=== PATIENT | male | born 1985 | race Caucasian/White ===

== ENCOUNTER 2017-12-21 15:41 | Emergency (ER) | payer OTHER ==
[~2017-12-21] VITALS: Ht 172.7 cm; Wt 72.0 kg
[2017-12-21 15:52] VITALS: TEMP 37.2; Ht 172.7 cm; Wt 72.0 kg
[2017-12-21 17:00] LABS: BASO % 0.6 %; BASO ABS # 0.07 K/uL (0-0.2); EOS % 0.3 %; EOS ABS # 0.04 K/uL (0-0.5); HEMATOCRIT 41.4 % (42-52); IG# 0.02 K/uL (0.00-0.02); LYMPH % 11.7 %; LYMPH ABS # 1.36 K/uL (1.2-3.4); MEAN CORPUSCULAR HGB CONC 36.2 g/dl (32-36); MEAN PLATELET VOLUME 10.2 fL (7.4-10.4); MONO % 6.2 %; MONO ABS # 0.72 K/uL (0.11-0.59); NEUT ABS # 9.46 K/uL (1.4-6.5); PLATELET COUNT 282 K/uL (130-400); RED CELL DISTRIBUTION WIDTH CV 12.1 % (11.5-14.5); RED CELL DISTRIBUTION WIDTH SD 40.3 fL (36.4-46.3); WHITE BLOOD COUNT 11.67 K/uL (4.8-10.8)
[2017-12-21 17:34] LABS: CALCIUM 9.1 mg/dl (8.5-10.1); CREATININE 0.88 mg/dl (0.60-1.40); POTASSIUM 3.7 mmol/L (3.5-5.1)
[2017-12-21] MEDS ORDERED: TRAZ100T29 PO (17:42)
[2017-12-21] MEDS ORDERED: FLUO20CA20 PO (17:42)
[2017-12-21 17:44] VITALS: BP 134/76; PULSE 82; O2SAT 99
[2017-12-21] MEDS ORDERED: SULFAMETHOXAZOLE/TRIMETHOPRIM DS 800/160MG TAB PO STA (18:08)
[2017-12-21] MEDS ORDERED: SULF800T23 PO (18:09)
--- NOTE | 2017-12-21 23:22 | EMERGENCY ROOM VISIT NOTE ---
History Report prepared by Ariela: Yaritza Reilly Under the Supervision of: Dr. Ronald Tolentino M.D. First contact with patient: 16:04 Chief Complaint: UNABLE TO VOID Stated Complaint: UNABLE TO URINATE Nursing Triage Summary: pt states " i can't urinate" last time he voided was 12 today, states he had this before but can't remember what it was but he needs surgery per c/o dysuria prior to noon today no kidney stones History of Present Illness The patient is a 32 year old male who presents to the Emergency Room with complaints of persistent inability to urinate since 1200 today. He states the last time he was able to urinate was at 1200 today. He reports a slight burning sensation with urination. He feels as though his bladder is full, though he denies any abdominal pain. He states that he is unable to void. He states the nursing staff at the shelter attempted to put a Menendez catheter in place though they were unsuccessful. He states that he has had similar symptoms about five months ago. He is not sure what caused this. He denies any nausea, fever, or back pain. The patient has a history of schizoaffective disorder and antisocial personality disorder. Source of History: patient Onset: 1200 today Position: other (Bladder) Symptom Intensity: severe Quality: other (Inability urinate) Timing: other (persistent) Associated Symptoms: + urinary symptoms (burning sensation with urination, unable to void), No fevers, No nausea, No abdominal pain, No back pain Review of Systems See HPI for pertinent positives & negatives. A total of 10 systems reviewed and were otherwise negative. Past Medical & Surgical Medical Problems: (1) Antisocial personality disorder (2) H/O urinary tract problem (3) Schizoaffective disorder Family History No pertinent family history Social History Smoking Status: Current Every Day Smoker Alcohol Use: none [facility] Status: [facility] Occupation Status: unemployed, other Current/Historical Medications Scheduled Fluoxetine Hcl (Pmdd) (Fluoxetine), 20 MG PO HS Sulfa/Trimethoprim (Bactrim Ds 800MG/160MG), 1 TAB PO BID Trazodone Hcl (Trazodone), 100 MG PO HS Allergies Coded Allergies: Animal Dander (Unverified Allergy, Mild, Itch, 12/21/17) Physical Exam Vital Signs Date Time Temp Pulse Resp B/P (MAP) Pulse Ox O2 Delivery O2 Flow Rate FiO2 12/21/17 17:44 82 18 134/76 99 Room Air 12/21/17 15:52 37.2 94 18 140/103 99 Room Air Physical Exam Constitutional: Vital signs reviewed. Eyes: Pupils are equal round reactive to light. Conjunctiva are noninjected. ENT: Pharynx is clear without erythema or exudate. Mucous membranes are moist. Neck supple without meningeal signs. Respiratory: Clear to auscultation bilaterally. Breath sounds are equal bilaterally. Cardiovascular: Regular rate and rhythm. No rubs or gallops. GI: Soft, nondistended and nontender. Bowel sounds are present. Musculoskeletal: No peripheral edema. No CVA tenderness. Integumentary: No cyanosis. Neurological: The patient is awake and alert. No focal deficits. Psychiatric: Normal affect. Medical Decision & Procedures Laboratory Results 12/21/17 16:46 Red Blood Count 4.55, Mean Corpuscular Volume 91.0, Mean Corpuscular Hemoglobin 33.0, Mean Corpuscular Hemoglobin Concent 36.2, Mean Platelet Volume 10.2, Neutrophils (%) (Auto) 81.0, Lymphocytes (%) (Auto) 11.7, Monocytes (%) (Auto) 6.2, Eosinophils (%) (Auto) 0.3, Basophils (%) (Auto) 0.6, Neutrophils # (Auto) 9.46, Lymphocytes # (Auto) 1.36, Monocytes # (Auto) 0.72, Eosinophils # (Auto) 0.04, Basophils # (Auto) 0.07 12/21/17 16:46 Test 12/21/17 16:30 12/21/17 16:46 Urine Color YELLOW Urine Appearance CLEAR (CLEAR) Urine pH 7.5 (4.5-7.5) Urine Specific [place] 1.009 (1.000-1.030) Urine Protein NEG (NEG) Urine Glucose (UA) NEG (NEG) Urine Ketones NEG (NEG) Urine Occult Blood NEG (NEG) Urine Nitrite POS (NEG) Urine Bilirubin NEG (NEG) Urine Urobilinogen NEG (NEG) Urine Leukocyte Esterase MODERATE (NEG) Urine WBC (Auto) 10-30 /hpf (0-5) Urine RBC (Auto) 0-4 /hpf (0-4) Urine Hyaline Casts (Auto) 1-5 /lpf (0-5) Urine Epithelial Cells (Auto) 0-5 /lpf (0-5) Urine Bacteria (Auto) 1+ (NEG) White Blood Count 11.67 K/uL (4.8-10.8) Red Blood Count 4.55 M/uL (4.7-6.1) Hemoglobin 15.0 g/dL (14.0-18.0) Hematocrit 41.4 % (42-52) Mean Corpuscular Volume 91.0 fL (80-100) Mean Corpuscular Hemoglobin 33.0 pg (25-34) Mean Corpuscular Hemoglobin Concent 36.2 g/dl (32-36) Platelet Count 282 K/uL (130-400) Mean Platelet Volume 10.2 fL (7.4-10.4) Neutrophils (%) (Auto) 81.0 % Lymphocytes (%) (Auto) 11.7 % Monocytes (%) (Auto) 6.2 % Eosinophils (%) (Auto) 0.3 % Basophils (%) (Auto) 0.6 % Neutrophils # (Auto) 9.46 K/uL (1.4-6.5) Lymphocytes # (Auto) 1.36 K/uL (1.2-3.4) Monocytes # (Auto) 0.72 K/uL (0.11-0.59) Eosinophils # (Auto) 0.04 K/uL (0-0.5) Basophils # (Auto) 0.07 K/uL (0-0.2) RDW Standard Deviation 40.3 fL (36.4-46.3) RDW Coefficient of Variation 12.1 % (11.5-14.5) Immature Granulocyte % (Auto) 0.2 % Immature Granulocyte # (Auto) 0.02 K/uL (0.00-0.02) Anion Gap 8.0 mmol/L (3-11) Est Creatinine Clear Calc Drug Dose 118.7 ml/min Estimated GFR () 133.6 Estimated GFR (Non- 115.3 BUN/Creatinine Ratio 10.6 (10-20) Calcium Level 9.1 mg/dl (8.5-10.1) Chemistry Specimen Hemolysis Laboratory results as reviewed by me. Medications Administered Medications (Trade) Dose Ordered Sig/Ariana Route Start Time Stop Time Status Last Admin Dose Admin Trimethoprim/ Sulfamethoxazole (Septra Ds 800/ 160MG Tab) 1 tab NOW STAT PO 12/21/17 18:08 12/21/17 18:09 DC 12/21/17 18:08 1 TAB ED Course 1604: The patient was evaluated in room B11B. A complete history and physical exam was performed. 164: I spoke with Glenn Harrison. She states the patient drained 1000 ml of urine via Menendez catheter. 180: Ordered Septra 1 tab PO 1811: I reassessed the patient at this time. He is feeling better and resting comfortably. I discussed the results and treatment plan with the patient. I answered all pertaining questions that he had. He expressed understanding and verbalized agreement. The patient will be discharged back to [facility]. Medical Decision This is a 32-year-old male who presents with inability urinate. Differential diagnosis includes urinary retention, obstructive uropathy, BPH, renal failure, oliguria, UTI. I did perform a limited focused review of portions of the patient's old chart on the electronic medical record. The patient has had no prior visits to this hospital. I did evaluate the patient as noted above. The patient is presenting with urinary retention. He has had similar problems in the past. His last episode was approximately 5 months ago. He is not sure what the cause of his urinary retention is. IV access was established. A bladder scan was performed. A Menendez catheter was placed. He drained about a liter of yellow urine. I did order and personally review the patient's urine analysis as described above. He does have evidence of infection. I did order and review the patient's blood work as noted in the electronic medical record. Renal function is unremarkable. I did discuss the test results with the patient. He is feeling much better. He was discharged with his Menendez catheter and placed in a leg bag. He will follow-up with the shelter doctor and I did recommend urology referral. He was discharged with a prescription for Bactrim and given his first dose here. Medication Reconcilliation Current Medication List: was personally reviewed by me Blood Pressure Screening Patient's blood pressure: Elevated blood pressure Blood pressure disposition: Referred to PCP Impression Primary Impression: Urinary retention Additional Impression: UTI (urinary tract infection) Scribe Attestation The scribe's documentation has been prepared under my direct and personally reviewed by me in its entirety. I confirm that the note above accurately reflects all work, treatment, procedures, and medical decision making performed by me. Departure Information Dispostion Other ([facility]) Prescriptions Sulfa/Trimethoprim (Bactrim Ds 800MG/160MG) Tab 1 TAB PO BID, #14 TAB Prov: Ronald Tolentino M.D. 12/21/17 Referrals Marissa BERRIOS (PCP) Forms HOME CARE DOCUMENTATION FORM, IMPORTANT VISIT INFORMATION, WORK / SCHOOL INSTRUCTIONS Patient Instructions ED Retention Urinary Male, ED UTI Cystitis Male, My [facility] Additional Instructions You have been examined and treated today on an emergency basis only. This is not a substitute for, or an effort to provide, complete comprehensive medical care. It is impossible to recognize and treat all injuries or illnesses in a single emergency department visit. It is therefore important that you follow up closely with the shelter physician. Return for worsening symptoms or if you develop fever, vomiting, or any other concerning symptoms. Problem Qualifiers Additional Impression: UTI (urinary tract infection) Urinary tract infection type: acute cystitis Hematuria presence: without hematuria Qualified Codes: N30.00 - Acute cystitis without hematuria
== END 2017-12-21 18:28 | disposition home or self-care (01) ==
LOC: C.EDB 15:43
DX: R33.9 Retention of urine, unspecified (principal); N39.0 Urinary tract infection, site not specified; F25.9 Schizoaffective disorder, unspecified; F60.2 Antisocial personality disorder; F17.200 Nicotine dependence, unspecified, uncomplicated; Z79.899 Other long term (current) drug therapy